=== PATIENT | female | born 1980 ===

== ENCOUNTER → 2016-07-14 | Outpatient (CLI) | payer OTHER | LOC: RAD 13:13 | PROVIDERS: ATTEND Family Medicine | DX: O46.8X3 Other antepartum hemorrhage, third trimester (principal); Z3A.28 28 weeks gestation of pregnancy | CPT/HCPCS: 76805 ==

== ENCOUNTER 2016-09-03 23:40 | Inpatient (IN) | payer OTHER ==
[~2016-09-03] VITALS: Ht 165.1 cm; Wt 76.0 kg
[2016-09-04] VITALS (19 sets, daily range): BP systolic 104–138; BP diastolic 8–73
[2016-09-04] MEDS ORDERED: OXYTOCIN INJ 20 UNIT in NS 1000ml 1,000 ML IV PRN ×2 (00:38→00:45)
[2016-09-04] MEDS ORDERED: SODIUM CHLORIDE FLUSH 10 ML SYR IV PRN ×2 (00:40→00:45)
[2016-09-04] MEDS ORDERED: CALCIUM CARBONATE CHEWABLE 300 MG (TUMS) TABLET PO PRN ×2 (00:40→00:45)
[2016-09-04 01:08] LABS: MEAN CORPUSCULAR HGB CONC 32.7 g/dL (31.0-37.0); MEAN PLATELET VOLUME 10.3 FL (6.0-9.5); WHITE BLOOD COUNT 10.79 10^3uL (4.0-11.0)
[2016-09-04 01:09] LABS: MEAN CORPUSCULAR HEMOGLOBIN 25.6 PG (26.0-34.0)
[2016-09-04] MEDS ORDERED: AMPICILLIN INJ 2,000 MG in SODIUM CHLORIDE 100 ML IV SCH (01:10)
[2016-09-04] MEDS ORDERED: SODIUM CHLORIDE 100 ML ONE (01:26)
[2016-09-04] MEDS ORDERED: AMPICILLIN 2000 MG VIAL ONE (01:27)
[2016-09-04] MEDS ORDERED: ROPIVACAINE 1% 10 MG/ML (NAROPIN) 20 ML AMPUL ONE (03:14)
[2016-09-04] MEDS ORDERED: FERR325T36 PO (04:33)
[2016-09-04] MEDS ORDERED: PREN1TAB79 PO (04:33)
[2016-09-04 04:35] LABS: BILIRUBIN,URINE Negative (Negative); CLARITY,URINE Clear; COLOR,URINE Yellow; GLUCOSE, URINE (UA) Negative (Negative); LEUKOCYTE ESTERASE ,URINE Negative (Negative); UROBILINOGEN,URINE 0.2 mg/dL (0.2-1.0)
[2016-09-04 04:36] LABS: URINE CENTRIFUGED VOLUME 12 mL
[2016-09-04 04:47] LABS: RBC,URINE >100 /HPF
[2016-09-04] MEDS ORDERED: AMPICILLIN INJ 1,000 MG in SODIUM CHLORIDE 50 ML IV SCH (05:10)
[2016-09-04] MEDS ORDERED: OXYTOCIN 10 UNIT/ML (PITOCIN) 1 ML VIAL ONE (05:53)
[2016-09-04] MEDS ORDERED: AMPICILLIN 1000 MG ONE (05:57)
[2016-09-04] MEDS ORDERED: SODIUM CHLORIDE 50 ML IV ONE (05:57)
--- NOTE | 2016-09-04 07:13 | History and Physical (E) ---
History & Physical (OB) Subjective: CC: Edilia 36 year old at 35 3/7 presented last night after SROM at home at 23:00. This has been complicated by a move and transfer of care from [place] at 23 weeks, history of prior delivery at 35 weeks, AMA, 2nd trimester bleeding, and fail 1 hour GTT with pass of 3 hour. I recommended progesterone injections when she moved here to prevent another , but she declined. On presentation, she was leslie every 5 minutes and dilated to 3cm. PNC: Nidia, malika Yeboah OB Hx: PPROM with at 35 weeks PMHx: none PSHx: , homemaker Allergies: Coded Allergies: No Known Drug Allergies (Unverified , 09/04/16) Home Medications: Reported Medications Vits W-Ca,Fe,Fa(<1MG) ( Vitamins)1 Each Tablet1 Each PO DAILY 09/04/16 Ferrous Sulfate (Iron)325 Mg [id number] Mg PO BID 09/04/16 Objective: Vital Signs Date Time Temp Pulse Resp B/P Pulse Ox O2 Delivery O2 Flow Rate FiO2 09/04/16 04:00 86 118/57 09/04/16 00:00 98.0 20 Laboratory Results Past 24 Hrs 09/04/16 00:01: Membranes Rupture (PAMG-1) Positive 09/04/16 00:53: Hematocrit 38.50, Hemoglobin 12.6, Mean Corpuscular Hemoglobin 25.6, Mean Corpuscular Hemoglobin Concent 32.7, Mean Corpuscular Volume 78, Mean Platelet Volume 10.3, Platelet Count 258, Red Blood Count 4.92, Red Cell Distribution Width 14.9, White Blood Count 10.79 09/04/16 03:55: Urine Bacteria None seen, Urine Bilirubin Negative, Urine Blood 3+, Urine Clarity Clear, Urine Collection Type Catheter, Urine Color Yellow, Urine Glucose (UA) Negative, Urine Ketones Negative, Urine Leukocyte Esterase Negative , Urine Microscopic RBC >100, Urine Mucus 2+, Urine Nitrite Negative, Urine Protein Negative, Urine Specific [place] 1.025, Urine Urobilinogen 0.2, Urine WBC 0-2, Urine pH 6.0, Volume Urine Centrifuged 12 ml General: Alert and oriented, NAD Chest: CTA Abdomen: Gravid Cardiovasular: RRR, No murmur Extremities: No edema FHT's: 150s, moderately reactive, + accels, rare variable decels Cx: complete [place]: q4min Screenings: Blood type: AB Positive, Rubella Immune, RPR non-reactive, HBV Negative, HIV Negative , GBS unknown . Problems/Plans: (1) with 35 completed weeks gestation Assessment & Plan: Ampicillin started due to unknown GBS status, and 2 doses received. Proceed with expectant delivery. (2) Spontaneous rupture of amniotic membranes (3) Request for sterilization Assessment & Plan: Requests PPTL, will proceed after delivery Additional Copies to: End of Report . CHAD YEBOAH MD Sep 04, 2016 07:13
[2016-09-04] MEDS ORDERED: HYDROcodone/APAP 5 MG/325 MG (NORCO) TAB PO PRN (07:20)
[2016-09-04] MEDS ORDERED: LANOLIN OINTMENT 28 GM TUBE TOP PRN (07:20)
[2016-09-04] MEDS ORDERED: KETOROLAC 30 MG/ML (TORADOL) 1 ML VIAL IV PRN (07:20)
[2016-09-04] MEDS ORDERED: NALBUPHINE 10 MG/ML (NUBAIN) 1 ML AMP IM PRN (07:20)
--- NOTE | 2016-09-04 07:20 | History and Physical (E) ---
OB History & Physical Update Patient desires permanent sterilization. She was informed of the risks and benefits of surgery, and wants to proceed. We are planning on 12:00 today. There are no changes to the H&P, other than she is delivered now. CHAD MCGARRY MD Sep 04, 2016 07:20
[2016-09-04] MEDS ORDERED: LACTATED RINGERS 1,000 ML IV SCH (11:00)
[2016-09-04] MEDS ORDERED: BUPIVACAINE/EPINEPHRINE 0.25%-1:200,000 (MARCAINE) 30 ML VIAL INJ ONE (11:03)
[2016-09-04] MEDS ORDERED: BUPIVACAINE/EPINEPHRINE 0.5%-1:200,000 (MARCAINE) 30 ML VIAL INJ ONE (11:03)
--- NOTE | 2016-09-04 11:20 | NUR ---
Pt calls this RN into room. States she has decided she does not want the tubal ligation. States she knows she doesn't want any more babies but not ready for a surgery for it. Dr. Yeboah notified and surgery.
--- NOTE | 2016-09-04 11:40 | NUR ---
Up to Br and voids. Pericare completed and pt returns to bed to eat lunch.
[2016-09-04] MEDS: IBUPROFEN 600 MG (MOTRIN) TAB PO PRN ×2 (11:55→17:44)
[2016-09-04] MEDS ORDERED: DOCUSATE SODIUM 100 MG (COLACE) CAP PO SCH (21:00)
[2016-09-05 07:26] LABS: MEAN CORPUSCULAR HGB CONC 32.8 g/dL (31.0-37.0); MEAN PLATELET VOLUME 10.1 FL (6.0-9.5); WHITE BLOOD COUNT 12.54 10^3uL (4.0-11.0)
[2016-09-05 07:29] LABS: MEAN CORPUSCULAR HEMOGLOBIN 25.2 PG (26.0-34.0)
[2016-09-05 09:14] VITALS: BP 114/73
--- NOTE | 2016-09-05 10:03 | Vaginal Delivery Summary (E) ---
Vaginal Delivery Summary At 06:36 on 09/04/16 this 36 year old G 2 now P2 spontaneously delivered a viable male infant at 35.4 weeks gestation. The patient presented for care at 10 weeks and ultrasound at 11 weeks confirmed dates. She transferred care to tx at 23 weeks. This complications: prior delivery at 35 weeks, AMA, 2nd trimester bleeding x1, fail 1 hour GTT with pass 3 hour GTT, desire for permanent sterilization. Maternal labs: Blood type: AB Positive, Hgb 10.9, Rubella Immune, RPR non- reactive, HBV Negative, HIV Negative , GBS unknown. Tdap booster received on . Flu booster received on 06/09. She presented for PPROM at home at 23:00. At presentation, she was 3 cm dilated. Epidural was placed at 0300, with good pain relief. At 0500, she was complete. She was allowed to labor down for about an hour. She pushed for approximately 30 minutes. The head presented occiput anterior and delivered easily, followed by the anterior shoulder. The posterior shoulder and the body followed in a controlled fashion and baby was placed on mom's abdomen. The cord was allowed to stop pulsing and then clamped x2 and cut by me. The placenta then delivered spontaneously and intact, with 3 vessel cord noted. The pitocin bag was run in. 1st laceration was repaired with a running, locking suture of 3-0 Vicryl. There were no other lacerations. Estimated blood loss 50 ml. weight: 5 pounds, 13 ounces, 2640 grams. Apgars: 9 at 1 minute, 9 at 5 minutes, and 9 at 10 minutes. Both mom and baby are stable at this time. CHAD MCGARRY MD Sep 04, 2016 07:19
--- NOTE | 2016-09-05 10:07 | Progress Note (E) ---
Post- Progress Note Subjective: Doing well. Ambulating well. Nursing with some difficulty, but better this morning. Urinating. Bleeding decreasing. Changed her mind yesterday about the tubal, would like to do IUD instead. Objective: Vital Signs Date Time Temp Pulse Resp B/P Pulse Ox O2 Delivery O2 Flow Rate FiO2 09/05/16 09:14 97.4 76 18 114/73 Room air 09/04/16 20:21 98 Laboratory Tests 09/05/16 07:15: Hematocrit 33.50, Hemoglobin 11.0, Mean Corpuscular Hemoglobin 25.2, Mean Corpuscular Hemoglobin Concent 32.8, Mean Corpuscular Volume 77, Mean Platelet Volume 10.1, Platelet Count 207, Red Blood Count 4.36, Red Cell Distribution Width 14.9, White Blood Count 12.54 Blood type: AB Positive, Current Medications Ibuprofen 600 mg Q6H PRN PO Last administered on 09/04/16t 17:44; Admin Dose 600 MG; Start 09/04/16 at 07:20 Docusate Sodium 100 mg HS PO; Start 09/04/16 at 21:00 Acetaminophen/ Hydrocodone Bitart Total acetaminophen not... Q4H PRN PO; Start 09/04/16 at 07:20 General: Alert and oriented, NAD Abdomen: Soft, non-distended, fundus firm Extremities: No edema Problems/Plans: (1) (spontaneous vaginal delivery) Assessment & Plan: Discharge today. Baby will stay to work on feeding. FU at 6 weeks. CHAD MCGARRY MD Sep 05, 2016 10:07
[2016-09-05] MEDS ORDERED: IBUP-1772 PO (10:09)
--- NOTE | 2016-09-05 17:20 | NUR ---
Pt dismissed to home but will stay here to be with baby. Dismissal instructions provided. Pt verbalizes understanding of self care.
== END 2016-09-05 17:20 | disposition home or self-care (01) | DRG 775 ==
LOC: EUOP 23:40 → OB 23:40 → EUOP 09-04 00:49 → OB 09-04 06:51
PROVIDERS: ADMIT Family Medicine; ATTEND Family Medicine
PROC: 10E0XZZ Delivery of Products of Conception, External Approach (ICD-10-PCS; principal; 2016-09-04)
PROC: 0HQ9XZZ Repair Perineum Skin, External Approach (ICD-10-PCS; 2016-09-04)
DX: O42.013 Preterm premature rupture of membranes, onset of labor within 24 hours of rupture, third trimester (principal); Z37.0 Single live birth; Z3A.35 35 weeks gestation of pregnancy
CPT/HCPCS: 36415; 81003; 81015; 84112; 85027; 86850; 86900; 86901